=== PATIENT | female | born 1935 | race Caucasian/White ===

== ENCOUNTER 2017-07-07 17:15 | Inpatient (IN) | payer MEDICARE, OTHER, MEDICAID ==
[~2017-07-07] VITALS: Ht 170.2 cm; Wt 111.9 kg
[~2017-07-07 17:15] MED LIST: ASPI-515 PO; BUME1TAB21 PO; CALC600T23 PO; CARV6.2512 PO; CITA20TA9 PO; CLON0.1T PO; CLON0.1T12 NG; CLOP75TA52 PO; EPIN0.3P3 IM; ESOM20CA PO; EZET10TA18 PO; HYDR-3237 PO; ISOS30TA8 PO; LOSA50TA2 PO; MULT-208 PO; NITR50CA11 PO; OMEG1CAP30 PO; POTA10TA5 PO; TEMA15CA6 PO; TIMO5DRO5 EACHEYE
[2017-07-07] MEDS ORDERED: SODIUM CHLORIDE FLUSH 10ML SYR IVF ONE (18:00)
[2017-07-07] MEDS ORDERED: LABETALOL 5MG/ML, 20ML IVPush ONE (18:00)
[2017-07-07] MEDS ORDERED: LABETALOL 5MG/ML, 20ML ONE (18:16)
[2017-07-07 18:21] LABS: ALANINE AMINOTRANSFERASE 59 U/L (12-78); ALBUMIN 3.2 g/dL (3.4-5.0); ANION GAP 7 mmol/L (5-15); CALCIUM 9.2 mg/dL (8.5-10.1); CHLORIDE 96 mmol/L (98-107); CREATININE 0.74 mg/dL (0.55-1.02)
[2017-07-07 18:25] LABS: ALKALINE PHOSPHATASE 84 U/L (45-117); BILIRUBIN,TOTAL 0.4 mg/dL (0.2-1.0); TOTAL PROTEIN 6.9 g/dL (6.4-8.2); TROPONIN I < 0.015 ng/mL (0.000-0.045)
[2017-07-07 18:36] LABS: BASOPHILS # (AUTO) 0.06 x10^3/uL (0-0.1); BASOPHILS % (AUTO) 1 % (0-1); EOSINOPHILS # (AUTO) 0.41 x10^3/uL (0-0.4); EOSINOPHILS % (AUTO) 6 % (1-7); LYMPHOCYTES # (AUTO) 2.64 x10^3/uL (1-3.4); LYMPHOCYTES % (AUTO) 36 % (22-44); MD NO; MEAN CORPUSCULAR HEMOGLOBIN 28.9 pg (27.0-34.8); MEAN CORPUSCULAR HGB CONC 32.5 g/dL (32.4-35.8); MEAN PLATELET VOLUME 8.3 fL (7.4-10.4); MONOCYTES # (AUTO) 0.74 x10^3/uL (0.2-0.8); MONOCYTES % (AUTO) 10 % (2-9); NEUTROPHILS # (AUTO) 3.48 x10^3/uL (1.8-6.8); NEUTROPHILS % (AUTO) 48 % (42-75); PLATELET COUNT 203 x10^3/uL (130-400); RED BLOOD COUNT 4.75 x10^6/uL (3.82-5.3); RED CELL DISTRIBUTION WIDTH 16.9 % (9.6-15.2)
[2017-07-07] MEDS ORDERED: SODIUM CHLORIDE FLUSH 10ML SYR IVF PRN (19:30)
[2017-07-07] MEDS ORDERED: FOLI-17 PO (19:32)
[2017-07-07] MEDS ORDERED: FLUT1AER IH (19:32)
[2017-07-07] MEDS ORDERED: ALBU2.5V NEB (19:32)
[2017-07-07] MEDS ORDERED: NITR0.4T SL (19:32)
[2017-07-07] MEDS ORDERED: AMLO10TA2 PO (19:32)
[2017-07-07] MEDS ORDERED: NITROGLYCERIN 0.4 MG BOTTLE (25 TABS) SL PRN (20:00)
[2017-07-07] MEDS ORDERED: POLYETHYLENE GLYCOL 17 GM PACKET PO PRN (20:00)
[2017-07-07] MEDS ORDERED: hydrALAzine 20 MG/ML, 1ML IVPush PRN (20:00)
[2017-07-07] MEDS ORDERED: BISACODYL 10 MG SUPP PR PRN (20:00)
[2017-07-07] MEDS ORDERED: ACETAMINOPHEN 325 MG TABLET PO PRN (20:00)
[2017-07-07] MEDS ORDERED: HYDROcodone/APAP 5/325 TABLET PO PRN (20:00)
[2017-07-07] MEDS ORDERED: TEMAZEPAM 15 MG CAPSULE PO PRN (20:00)
[2017-07-07 20:35] VITALS: BP 160/81
[2017-07-07] MEDS: HEPARIN 5,000 UNITS/ML, 1ML SQ SCH (22:22)
[2017-07-07] MEDS: NITROFURANTOIN 50 MG CAPSULE PO SCH (22:23)
[2017-07-07] MEDS: BUMETANIDE 1 MG TABLET PO SCH (22:23)
[2017-07-07] MEDS: CARVEDILOL 12.5 MG TABLET PO SCH (22:23)
[2017-07-07] MEDS: SODIUM CHLORIDE FLUSH 10ML SYR IVF SCH (22:24)
[2017-07-07] MEDS ORDERED: ALBUTEROL SULFATE 2.5 MG/3 ML NPPB PRN (22:30)
[2017-07-07] MEDS: TIMOLOL OPHTH 0.5%, 5ML EACHEYE SCH (23:33)
[2017-07-07] MEDS: BENZONATATE 100 MG CAPSULE PO PRN (23:33)
[2017-07-08 02:00] VITALS: BP 134/72
[2017-07-08 05:51] LABS: CHLORIDE 99 mmol/L (98-107)
[2017-07-08 05:52] LABS: BASOPHILS % (AUTO) 0 % (0-1); EOSINOPHILS # (AUTO) 0.36 x10^3/uL (0-0.4); EOSINOPHILS % (AUTO) 5 % (1-7); LYMPHOCYTES # (AUTO) 2.84 x10^3/uL (1-3.4); LYMPHOCYTES % (AUTO) 42 % (22-44); MD NO; MEAN CORPUSCULAR HEMOGLOBIN 29.5 pg (27.0-34.8); MEAN CORPUSCULAR HGB CONC 33.1 g/dL (32.4-35.8); MEAN PLATELET VOLUME 8.5 fL (7.4-10.4); MONOCYTES # (AUTO) 0.78 x10^3/uL (0.2-0.8); MONOCYTES % (AUTO) 12 % (2-9); NEUTROPHILS # (AUTO) 2.77 x10^3/uL (1.8-6.8); NEUTROPHILS % (AUTO) 41 % (42-75); PLATELET COUNT 169 x10^3/uL (130-400); RED BLOOD COUNT 4.09 x10^6/uL (3.82-5.3); RED CELL DISTRIBUTION WIDTH 17.2 % (9.6-15.2)
[2017-07-08 06:03] LABS: ALANINE AMINOTRANSFERASE 56 U/L (12-78); ALBUMIN 2.6 g/dL (3.4-5.0); ALKALINE PHOSPHATASE 65 U/L (45-117); ANION GAP 6 mmol/L (5-15); BILIRUBIN,TOTAL 0.7 mg/dL (0.2-1.0); CALCIUM 8.8 mg/dL (8.5-10.1); CREATININE 0.73 mg/dL (0.55-1.02); TOTAL PROTEIN 5.8 g/dL (6.4-8.2)
[2017-07-08] MEDS: HEPARIN 5,000 UNITS/ML, 1ML SQ SCH ×3 (06:15→22:19)
[2017-07-08] MEDS: NITROFURANTOIN 50 MG CAPSULE PO SCH ×4 (06:16→22:18)
[2017-07-08] MEDS: ALBUTEROL/IPRATROPIUM 2.5MG/0.5MG, 3 ML NPPB SCH ×4 (08:20→20:20)
[2017-07-08] MEDS ORDERED: POTASSIUM CHLORIDE 20 MEQ TAB.ER.PRT ONE (08:36)
[2017-07-08 08:53] VITALS: BP 154/74
[2017-07-08] MEDS: CLOPIDOGREL 75 MG TABLET PO SCH (08:55)
[2017-07-08] MEDS: AMLODIPINE 5 MG TABLET PO SCH (08:55)
[2017-07-08] MEDS: MULTIVITAMIN 1 TABLET PO SCH (08:55)
[2017-07-08] MEDS: ASPIRIN 81 MG TABLET EC PO SCH (08:56)
[2017-07-08] MEDS: PANTOPRAZOLE 20MG TABLET PO SCH (08:56)
[2017-07-08] MEDS: CITALOPRAM 20 MG TABLET PO SCH (08:56)
[2017-07-08] MEDS: EZETIMIBE 10 MG TABLET PO SCH (08:56)
[2017-07-08] MEDS: CARVEDILOL 12.5 MG TABLET PO SCH ×2 (08:56→22:18)
[2017-07-08] MEDS: OMEGA-3/FISH OIL CAPSULE PO SCH (08:56)
[2017-07-08] MEDS: BUMETANIDE 1 MG TABLET PO SCH ×2 (08:56→21:00)
[2017-07-08] MEDS: SODIUM CHLORIDE FLUSH 10ML SYR IVF SCH ×2 (08:57→22:18)
[2017-07-08] MEDS: TIMOLOL OPHTH 0.5%, 5ML EACHEYE SCH ×2 (08:57→22:19)
[2017-07-08] MEDS: POTASSIUM CHLORIDE 10 MEQ TABLET.ER PO SCH (08:58)
[2017-07-08] MEDS ORDERED: FLUTICASONE/VILANTEROL 100-25MCG/INH INH SCH (09:00)
[2017-07-08] MEDS ORDERED: LOSARTAN 50MG TABLET PO SCH (09:00)
[2017-07-08] MEDS: FOLIC ACID 1 MG TABLET PO SCH (09:07)
[2017-07-08] MEDS: LOSARTAN 50MG TABLET PO SCH ×2 (12:37→22:18)
[2017-07-08] MEDS: ISOSORBIDE MONONITRATE ER 60 MG TABLET PO SCH (12:56)
[2017-07-08] MEDS: FLUTICASONE/VILANTEROL 200-25MCG/INH INH SCH (12:56)
[2017-07-08 14:40] VITALS: BP 113/58
[2017-07-08 15:16] LABS: CULTURE INDICATED? NO; MICROSCOPIC NOT IND
[2017-07-08 21:13] VITALS: BP 140/70
[2017-07-09 00:44] VITALS: BP 147/74
[2017-07-09] MEDS: BENZONATATE 100 MG CAPSULE PO PRN ×2 (02:28→20:46)
[2017-07-09] MEDS: ALBUTEROL/IPRATROPIUM 2.5MG/0.5MG, 3 ML NPPB SCH ×5 (04:45→19:10)
[2017-07-09 05:45] LABS: ANION GAP 7 mmol/L (5-15); CALCIUM 8.7 mg/dL (8.5-10.1); CHLORIDE 97 mmol/L (98-107); CREATININE 0.86 mg/dL (0.55-1.02)
[2017-07-09] MEDS: NITROFURANTOIN 50 MG CAPSULE PO SCH ×2 (06:13→10:48)
[2017-07-09] MEDS: HEPARIN 5,000 UNITS/ML, 1ML SQ SCH ×3 (06:13→23:11)
[2017-07-09 06:46] VITALS: BP 142/74
[2017-07-09] MEDS: FLUTICASONE/VILANTEROL 200-25MCG/INH INH SCH (08:39)
[2017-07-09] MEDS: TIMOLOL OPHTH 0.5%, 5ML EACHEYE SCH ×2 (08:39→20:45)
[2017-07-09] MEDS: ISOSORBIDE MONONITRATE ER 60 MG TABLET PO SCH (08:41)
[2017-07-09] MEDS: LOSARTAN 50MG TABLET PO SCH ×2 (08:41→20:46)
[2017-07-09] MEDS: BUMETANIDE 1 MG TABLET PO SCH ×2 (08:41→20:45)
[2017-07-09] MEDS: CLOPIDOGREL 75 MG TABLET PO SCH (08:41)
[2017-07-09] MEDS: PANTOPRAZOLE 20MG TABLET PO SCH (08:41)
[2017-07-09] MEDS: EZETIMIBE 10 MG TABLET PO SCH (08:41)
[2017-07-09] MEDS: OMEGA-3/FISH OIL CAPSULE PO SCH (08:41)
[2017-07-09] MEDS: SODIUM CHLORIDE FLUSH 10ML SYR IVF SCH ×2 (08:42→20:45)
[2017-07-09] MEDS: POTASSIUM CHLORIDE 10 MEQ TABLET.ER PO SCH (08:42)
[2017-07-09] MEDS: AMLODIPINE 5 MG TABLET PO SCH (08:42)
[2017-07-09] MEDS: ASPIRIN 81 MG TABLET EC PO SCH (08:42)
[2017-07-09] MEDS: CITALOPRAM 20 MG TABLET PO SCH (08:42)
[2017-07-09] MEDS: CARVEDILOL 12.5 MG TABLET PO SCH ×2 (08:42→20:45)
[2017-07-09] MEDS: MULTIVITAMIN 1 TABLET PO SCH (08:42)
[2017-07-09] MEDS: FOLIC ACID 1 MG TABLET PO SCH (08:42)
[2017-07-09 12:30] VITALS: BP 114/57
[2017-07-09] MEDS: ONDANSETRON 2MG/ML, 2ML IVPush PRN (18:09)
[2017-07-09 20:23] VITALS: BP 115/67
[2017-07-10 02:57] VITALS: BP 101/51
[2017-07-10 03:59] VITALS: BP 132/71
[2017-07-10 07:15] VITALS: BP 144/75
[2017-07-10] MEDS: ALBUTEROL/IPRATROPIUM 2.5MG/0.5MG, 3 ML NPPB SCH ×3 (07:25→11:50)
[2017-07-10] MEDS: SODIUM CHLORIDE FLUSH 10ML SYR IVF SCH (09:00)
[2017-07-10] MEDS: CLOPIDOGREL 75 MG TABLET PO SCH (09:00)
[2017-07-10] MEDS: BUMETANIDE 1 MG TABLET PO SCH (09:00)
[2017-07-10] MEDS: HEPARIN 5,000 UNITS/ML, 1ML SQ SCH (09:16)
[2017-07-10] MEDS: FLUTICASONE/VILANTEROL 200-25MCG/INH INH SCH (09:17)
[2017-07-10] MEDS: TIMOLOL OPHTH 0.5%, 5ML EACHEYE SCH (09:17)
[2017-07-10] MEDS: ASPIRIN 81 MG TABLET EC PO SCH (09:18)
[2017-07-10] MEDS: MULTIVITAMIN 1 TABLET PO SCH (09:18)
[2017-07-10] MEDS: AMLODIPINE 5 MG TABLET PO SCH (09:18)
[2017-07-10] MEDS: FOLIC ACID 1 MG TABLET PO SCH (09:18)
[2017-07-10] MEDS: CITALOPRAM 20 MG TABLET PO SCH (09:18)
[2017-07-10] MEDS: LOSARTAN 50MG TABLET PO SCH (09:18)
[2017-07-10] MEDS: POTASSIUM CHLORIDE 10 MEQ TABLET.ER PO SCH (09:18)
[2017-07-10] MEDS: CARVEDILOL 12.5 MG TABLET PO SCH (09:18)
[2017-07-10] MEDS: PANTOPRAZOLE 20MG TABLET PO SCH (09:19)
[2017-07-10] MEDS: EZETIMIBE 10 MG TABLET PO SCH (09:19)
[2017-07-10] MEDS: OMEGA-3/FISH OIL CAPSULE PO SCH (09:19)
[2017-07-10] MEDS: ISOSORBIDE MONONITRATE ER 60 MG TABLET PO SCH (09:19)
[2017-07-10] MEDS: ONDANSETRON 2MG/ML, 2ML IVPush PRN (09:43)
[2017-07-10] MEDS ORDERED: BUMETANIDE 0.25 MG/ML, 4ML IV ONE (10:30)
[2017-07-10] MEDS ORDERED: BUME1TAB21 PO (11:24)
[2017-07-10] MEDS ORDERED: LOSA50TA2 PO (11:24)
[2017-07-10] MEDS ORDERED: ISOS60TA36 PO (11:24)
[2017-07-10] MEDS ORDERED: IPRA3AMP NPPB (11:24)
[2017-07-10] MEDS ORDERED: POTA10TA5 PO (11:24)
[2017-07-10] MEDS ORDERED: FLUT1BLS INH (11:24)
== END 2017-07-10 14:00 | disposition home or self-care (01) | DRG 305 ==
LOC: ED 19:14 → EDIP 19:23 → 4WST 20:16 → DCLOUNGE 07-10 13:36
PROVIDERS: ADMIT Internal Medicine; ATTEND Internal Medicine
DX: I16.1 Hypertensive emergency (principal); J96.10 Chronic respiratory failure, unspecified whether with hypoxia or hypercapnia; Z99.81 Dependence on supplemental oxygen; E44.1 Mild protein-calorie malnutrition; E87.1 Hypo-osmolality and hyponatremia; I51.81 Takotsubo syndrome; Z95.1 Presence of aortocoronary bypass graft; J43.9 Emphysema, unspecified; E78.5 Hyperlipidemia, unspecified; I10 Essential (primary) hypertension; H40.9 Unspecified glaucoma; I25.10 Atherosclerotic heart disease of native coronary artery without angina pectoris; K21.9 Gastro-esophageal reflux disease without esophagitis; R62.7 Adult failure to thrive; Z66 Do not resuscitate; Z79.899 Other long term (current) drug therapy; Z90.710 Acquired absence of both cervix and uterus; Z98.49 Cataract extraction status, unspecified eye; Z79.82 Long term (current) use of aspirin; Z79.02 Long term (current) use of antithrombotics/antiplatelets; Z68.38 Body mass index [BMI] 38.0-38.9, adult
CPT/HCPCS: 36415; 71045; 80048; 80053; 81003; 82962; 83735; 83880; 84484; 85025; 93005; 94640; 96374; J1644; J2405; J7620

== ENCOUNTER 2021-01-26 20:32 | Emergency (ER) | payer MEDICARE, MEDICAID ==
[~2021-01-26] VITALS: Ht 175.3 cm; Wt 98.0 kg
[~2021-01-26 20:32] MED LIST changes: +ALBU2.5V NEB; +AMLO-211 PO; -ASPI-515 PO; +ASPI-963 PO; -CLON0.1T PO; +CLON0.1T22 PO; -EZET10TA18 PO; +EZET10TA70 PO; +FLUT1AER IH; +FLUT1BLS INH; +FOLI1TAB32 PO; +IPRA3AMP30 NPPB; +ISOS60TA36 PO; +NITR0.4T41 SL
[2021-01-26 20:35] VITALS: BP 126/99
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
--- NOTE | 2021-01-26 21:10 | NUR ---
PT TO XRAY
[2021-01-26] MEDS ORDERED: BACITRACIN ZINC OINT 500U/GM, 0.9 GM ONE (22:41)
--- NOTE | 2021-01-26 23:05 | NUR ---
Patient & Caregiver given discharge instructions and they have confirmed that they understand the instructions. Patient to d/c via wheelchair. NAD, all questions answered appropriately, denies additional needs at this time. No personal belongings left in room after discharge.
== END 2021-01-26 23:27 | disposition home or self-care (01) ==
LOC: ED 23:01
DX: S80.01XA Contusion of right knee, initial encounter (principal); R51.9 Headache, unspecified; I10 Essential (primary) hypertension; J44.9 Chronic obstructive pulmonary disease, unspecified; W01.0XXA Fall on same level from slipping, tripping and stumbling without subsequent striking against object, initial encounter; Y93.89 Activity, other specified; Y92.009 Unspecified place in unspecified non-institutional (private) residence as the place of occurrence of the external cause; Y99.8 Other external cause status
CPT/HCPCS: 99284

== ENCOUNTER 2021-02-11 23:44 | Observation (INO) | payer MEDICARE, MEDICAID ==
[~2021-02-11] VITALS: Ht 170.2 cm; Wt 101.7 kg
[2021-02-12] MEDS ORDERED: ASPIRIN 81 MG TABLET CHEW PO ONE
[2021-02-12] MEDS ORDERED: ONDANSETRON 2MG/ML, 2ML IVPush ONE
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
[2021-02-12 00:10] LABS: BASOPHILS % (AUTO) 1 % (0-1); EOSINOPHILS % (AUTO) 5 % (1-7); LYMPHOCYTES % (AUTO) 33 % (22-44); MEAN CORPUSCULAR HEMOGLOBIN 30.6 pg (27.0-34.8); MEAN CORPUSCULAR HGB CONC 33.2 g/dL (32.4-35.8); MEAN PLATELET VOLUME 7.8 fL (7.4-10.4); MONOCYTES % (AUTO) 13 % (2-9); NEUTROPHILS % (AUTO) 48 % (42-75); PLATELET COUNT 206 x10^3/uL (130-400); RED BLOOD COUNT 4.37 x10^6/uL (3.82-5.3); RED CELL DISTRIBUTION WIDTH 14.9 % (9.6-15.2)
[2021-02-12 00:21] LABS: ALANINE AMINOTRANSFERASE 21 U/L (12-78); ALBUMIN 3.3 g/dL (3.4-5.0); ANION GAP 4 mmol/L (5-15); CALCIUM 9.7 mg/dL (8.5-10.1); CHLORIDE 99 mmol/L (98-107); CREATININE 0.71 mg/dL (0.55-1.02)
[2021-02-12 00:26] LABS: ALKALINE PHOSPHATASE 87 U/L (45-117); BILIRUBIN,TOTAL 0.5 mg/dL (0.2-1.0); TOTAL PROTEIN 7.2 g/dL (6.4-8.2); TROPONIN I < 0.015 ng/mL (0.000-0.045)
[2021-02-12] MEDS ORDERED: ONDANSETRON 2MG/ML, 2ML ONE (00:26)
[2021-02-12] MEDS ORDERED: ASPIRIN 81 MG TABLET CHEW ONE ×2 (00:26→00:31)
--- NOTE | 2021-02-12 00:42 | NUR ---
PT LAYING IN BED, A/OX3, ALL NEEDS IN REACH, CALL LIGHT IN REACH, NAD AT THIS TIME
--- NOTE | 2021-02-12 01:10 | NUR ---
PT LAYING IN BED, A/OX3, ALL NEEDS IN REACH, CALL LIGHT IN REACH, NAD AT THIS TIME, VSS
[2021-02-12] MEDS ORDERED: GUAIFENESIN/DM 200-20MG, 10ML UDC PO PRN (02:00)
[2021-02-12] MEDS ORDERED: LABETALOL 5MG/ML, 20ML IVPush PRN (02:00)
[2021-02-12] MEDS ORDERED: POLYETHYLENE GLYCOL 17 GM PACKET PO PRN (02:00)
[2021-02-12] MEDS ORDERED: GLUCAGON 1 MG IM PRN (02:00)
[2021-02-12] MEDS ORDERED: DEXTROSE 4 GM TAB.CHEW PO PRN (02:00)
[2021-02-12] MEDS ORDERED: morphine SULFATE 10 MG/ML, 1ML IVPush PRN (02:00)
[2021-02-12] MEDS ORDERED: ACETAMINOPHEN 500 MG TABLET PO PRN (02:00)
[2021-02-12] MEDS ORDERED: ONDANSETRON 2MG/ML, 2ML IVPush PRN (02:00)
[2021-02-12] MEDS ORDERED: NITROGLYCERIN 0.4 MG BOTTLE (25 TABS) SL PRN (02:00)
[2021-02-12] MEDS ORDERED: ENOXAPARIN 40 MG/0.4 ML SQ SCH (02:00)
[2021-02-12] MEDS ORDERED: MELATONIN 5 MG TABLET PO PRN (02:00)
[2021-02-12] MEDS ORDERED: DEXTROSE 50%, 50ML SYRINGE IVPush PRN (02:00)
[2021-02-12] MEDS ORDERED: ASPIRIN 81 MG TABLET EC PO ONE (02:15)
[2021-02-12] MEDS ORDERED: MAALOX/HYOSCYAMINE/LIDOCAINE 45 ML BTL PO ONE (02:30)
[2021-02-12 02:57] VITALS: BP 174/90
[2021-02-12 03:16] VITALS: BP 180/77
[2021-02-12 06:44] LABS: TROPONIN I < 0.015 ng/mL (0.000-0.045)
[2021-02-12 07:02] LABS: FREE T4 (FREE THYROXINE) 1.05 ng/dL (0.76-1.46)
[2021-02-12 07:22] VITALS: BP 173/84
[2021-02-12] MEDS ORDERED: REGADENOSON 0.4 MG/5 ML SYRINGE ONE (07:41)
[2021-02-12] MEDS ORDERED: OMEG100023 PO (07:47)
[2021-02-12] MEDS ORDERED: CLOP75TA PO (07:47)
[2021-02-12] MEDS ORDERED: SPIR25TA5 PO (07:47)
[2021-02-12] MEDS ORDERED: MULT-252 PO (07:47)
[2021-02-12] MEDS ORDERED: EZET10TA48 PO (07:47)
[2021-02-12] MEDS ORDERED: CARV12.52 PO (07:47)
[2021-02-12] MEDS ORDERED: CITA20TA6 PO (07:47)
[2021-02-12] MEDS ORDERED: LOSA100T14 PO (07:47)
[2021-02-12] MEDS ORDERED: SODIUM CHLORIDE FLUSH 10ML SYR IVF SCH (09:00)
[2021-02-12] MEDS ORDERED: TIMO1DRO6 EACHEYE (10:23)
[2021-02-12 11:41] LABS: ANION GAP 9 mmol/L (5-15); CALCIUM 9.6 mg/dL (8.5-10.1); CHLORIDE 100 mmol/L (98-107)
[2021-02-12 11:45] LABS: CHOL/HDL RATIO 4.7; CHOLESTEROL, TOTAL 197 mg/dL (140-239); CREATININE 0.79 mg/dL (0.55-1.02); HDL CHOL % 21 % (28-40); HDL CHOLESTEROL (DIRECT) 42 mg/dL (40-60); LDL CHOLESTEROL,CALCULATED 120 mg/dL (54-169); LDL/HDL RATIO 2.9 (0.5-3.0); TRIGLYCERIDES 177 mg/dL (50-200); TROPONIN I < 0.015 ng/mL (0.000-0.045); VLDL CHOLESTEROL 35 mg/dL (0-25)
[2021-02-12 12:29] VITALS: BP 158/67
[2021-02-12] MEDS ORDERED: SPIRONOLACTONE 25 MG TABLET PO SCH (13:00)
[2021-02-12] MEDS ORDERED: CLOPIDOGREL 75 MG TABLET PO SCH (13:00)
[2021-02-12] MEDS ORDERED: ISOSORBIDE MONONITRATE ER 60 MG TABLET PO SCH (13:00)
[2021-02-12] MEDS ORDERED: LOSARTAN 100 MG TAB PO SCH (13:00)
[2021-02-12] MEDS ORDERED: CARVEDILOL 6.25 MG TABLET PO SCH (21:00)
[2021-02-13] MEDS ORDERED: AMLODIPINE 5 MG TABLET PO SCH (09:00)
== END 2021-02-12 18:15 | disposition home or self-care (01) ==
LOC: ED 02-12 01:25 → INTOOBSV 02-12 01:30 → EDIP 02-12 01:30 → 5SO 02-12 02:07
PROVIDERS: ADMIT Internal Medicine; ATTEND Family Medicine
DX: R07.89 Other chest pain (principal); I25.110 Atherosclerotic heart disease of native coronary artery with unstable angina pectoris; I45.10 Unspecified right bundle-branch block; I51.81 Takotsubo syndrome; E16.2 Hypoglycemia, unspecified; J43.9 Emphysema, unspecified; J96.11 Chronic respiratory failure with hypoxia; G62.9 Polyneuropathy, unspecified; K21.9 Gastro-esophageal reflux disease without esophagitis; H40.9 Unspecified glaucoma; I10 Essential (primary) hypertension; E78.5 Hyperlipidemia, unspecified; I25.2 Old myocardial infarction; E03.8 Other specified hypothyroidism; E66.01 Morbid (severe) obesity due to excess calories; Z68.35 Body mass index [BMI] 35.0-35.9, adult; Z88.0 Allergy status to penicillin; Z95.5 Presence of coronary angioplasty implant and graft; Z79.899 Other long term (current) drug therapy
CPT/HCPCS: 36415; 71045; 78452; 80053; 80061; 82962; 84439; 84443; 84484; 85025; 93005; 93017; 96372; 96374; 96375; 97162; 97165; 99285; A9502; G0378; J1650; J2405; J2785; 80048